=== PATIENT | female | born 1970 | race Caucasian/White ===

== ENCOUNTER 2016-03-07 22:42 | Observation (INO) | payer BC ==
[~2016-03-07] VITALS: Ht 162.6 cm; Wt 69.2 kg
[2016-03-07 23:37] LABS: EOSINOPHIL (%) 0.4 % (0-5); HEMATOCRIT 38.6 % (36.0-46.0); IMMATURE GRANULOCYTE (%) 0.3 % (0.0-0.7); IMMATURE GRANULOCYTE COUNT 0.3 K/uL; LYMPHOCYTE COUNT 1.9 K/uL (1.0-2.8); MCH 31.1 PG (29.0-34.0); MCHC 34.5 G/DL (30.0-36.0); MCV 90.4 FL (83-99); MEAN PLAT.VOLUME 9.6 uM^3 (9.5-12.4); MONOCYTE (%) 8.4 % (3-12); MONOCYTE COUNT 0.9 K/uL (0-0.8); NEUTROPHIL COUNT 7.9 K/uL (1.8-6.4); PLATELET COUNT 283 K/uL (156-360); RBC DIS.WIDTH-CV 12.5 % (11.8-14.6); RBC DIS.WIDTH-SD 40.5 % (39-53); RED BLOOD COUNT 4.27 M/uL (3.80-5.20); WHITE BLOOD COUNT 10.8 K/uL (4.1-10.2)
[2016-03-07 23:48] LABS: PROTHROMBIN TIME 10.5 (9.2-11.2); PTT 26.8 (25-32)
[2016-03-07 23:50] LABS: CHLORIDE 110 mEq/L (99-109); POTASSIUM 3.3 mEq/L (3.7-5.4); SODIUM 142 mEq/L (136-147)
[2016-03-07 23:51] LABS: GLUCOSE 113 mg/dL (70-99)
[2016-03-07 23:53] LABS: ANION GAP 12 MEQ/L (2-14)
[2016-03-07 23:55] LABS: GFR ESTIMATE (CALCULATED) > 59 mL/min/
[2016-03-07 23:56] LABS: UREA NITROGEN (BUN) 20 mg/dL (9-23)
[2016-03-07 23:58] LABS: CREATINE KINASE 502 IU/L (1-294)
[2016-03-08 00:01] LABS: TROP-I INTERPRETATION NEGATIVE; TROPONIN-I < 0.01 ng/mL (0.0-0.30)
[2016-03-08] MEDS ORDERED: URIBEL CAPSULE1 EACH PO (01:53)
[2016-03-08] MEDS ORDERED: LISINOPRIL5 MG PO (01:54)
[2016-03-08] MEDS ORDERED: LO-DOSE ASPIRIN81 M1 PO (01:54)
[2016-03-08] MEDS ORDERED: MYRBETRIQ50 MG PO (01:54)
[2016-03-08] MEDS ORDERED: DITROPAN XL10 MG PO (01:54)
[2016-03-08 07:29] LABS: HDL CHOLESTEROL 56 MG/DL (Desirable>=50); LDL CHOLESTEROL 105 mg/dL (Desirable<100); NON-HDL CHOLESTEROL 124 mg/dL (Desirable<160); TOTAL CHOLESTEROL 180 mg/dL (Desirable<200); TRIGLYCERIDES 96 MG/DL (Normal: <150)
[2016-03-08 09:23] LABS: ADD MIUA? YES; BILIRUBIN NEGATIVE; BLOOD TRACE; COLOR GREEN ((YELLOW)); GLUCOSE (STRIP) NEGATIVE; KETONES NEGATIVE; LEUKOCYTES NEGATIVE; NITRITE NEGATIVE; PH, URINE 7.5 (5-8); PROTEIN (STRIP) NEGATIVE; UROBILINOGEN 0.2 MG/DL (0.2-1.0)
[2016-03-08 09:49] LABS: EPITHELIAL CELLS 1+; RED BLOOD CELLS NONE SEEN /HPF (0-5); WHITE BLOOD CELLS NONE SEEN /HPF (0-5)
[2016-03-08 09:50] LABS: AMORPHOUS PHOSPHATE CRYSTALS 1+; BACTERIA NONE SEEN; CASTS NONE SEEN /LPF; CRYSTALS PRESENT; MUCUS NONE SEEN; UCUL ADDED? NO
[2016-03-08 12:35] LABS: CHLORIDE 113 mEq/L (99-109); SODIUM 142 mEq/L (136-147)
[2016-03-08 12:36] LABS: GLUCOSE 101 mg/dL (70-99)
[2016-03-08 12:38] LABS: ANION GAP 10 MEQ/L (2-14)
[2016-03-08 12:40] LABS: GFR ESTIMATE (CALCULATED) > 59 mL/min/
[2016-03-08 12:41] LABS: UREA NITROGEN (BUN) 13 mg/dL (9-23)
[2016-03-08 12:43] LABS: CREATINE KINASE 322 IU/L (1-294)
[2016-03-08 14:49] VITALS: BP 147/65
[2016-03-08 15:04] LABS: Estimated Average Glucose 120 mg/dL (70-123); HEMOGLOBIN A1c (GLYCOHEMOGLOB) 5.8 % HGB (Below 5.7)
[2016-03-08 16:15] VITALS: BP 136/81
[2016-03-08] MEDS ORDERED: ATORVASTATIN CA10 MG PO (17:11)
== END 2016-03-08 18:17 | disposition home or self-care (01) ==
LOC: EME 22:42 → EDOF 03-08 03:41 → 5WEST 03-08 14:12
PROVIDERS: Emergency Medicine; Hospitalist; Internal Medicine
DX: G45.9 Transient cerebral ischemic attack, unspecified (principal); M62.82 Rhabdomyolysis; E87.6 Hypokalemia; R94.4 Abnormal results of kidney function studies; R00.2 Palpitations; I10 Essential (primary) hypertension; R01.1 Cardiac murmur, unspecified; Z86.73 Personal history of transient ischemic attack (TIA), and cerebral infarction without residual deficits; Z88.0 Allergy status to penicillin; Z88.8 Allergy status to other drugs, medicaments and biological substances
CPT/HCPCS: 70450; 70551; 71010; 80048; 80061; 81003; 82550; 83036; 84443; 84484; 85025; 85610; 85730; 93005; 93880; 99281; 99285; G0378; J1650; J7030